=== PATIENT | male | born 1970 | race African-American/Black ===

== ENCOUNTER 2017-04-06 12:07 | Outpatient (CLI) | payer OTHER ==
[2017-04-06] MEDS ORDERED: NACL ONE (13:02)
--- NOTE | 2017-04-06 14:09 | Cat Scan Report ---
CTA CHEST INDICATION: Pleurodynia. COMPARISON: None similar at this institution. FINDINGS: Chest CTA performed following intravenous administration of 100 cc of Omnipaque 350. Rotational MIP's also obtained. Top normal heart size. No effusions. No aortic aneurysm, dissection or suspicious pulmonary arterial filling defects. No size significant adenopathy, though bilateral hilar lymphoid soft tissues measure approximately 1 cm on either side, axial images 101 and 115, series 2. Normal airway. Unremarkable thyroid. Clear lungs. Slight air filled distal esophageal prominence. Right hemidiaphragm mildly elevated. Images through included upper abdomen reveal no acute abnormality. Left hepatic lobe tip wraps around the spleen. Lower thoracic spine degenerative spurring. CONCLUSION: No CT evidence of pulmonary embolism with few other incidental findings, as above. Thank you for the opportunity to participate in this patient's care.
== END 2017-04-06 12:08 | disposition home or self-care (01) ==
LOC: CT 12:07
PROVIDERS: ATTEND Internal Medicine Cardiovascular Disease
DX: R07.81 Pleurodynia (principal); R06.02 Shortness of breath; J98.6 Disorders of diaphragm; M53.84 Other specified dorsopathies, thoracic region
CPT/HCPCS: 36415; 71275; 82565; Q9967